=== PATIENT | male | born 1950 | race Caucasian/White ===

== ENCOUNTER → 2020-08-15 | Day surgery (SDC) | payer OTHER ==
[~2020-08-15] VITALS: Ht 173 cm; Wt 108.9 kg
[~2020-08-15] MED LIST: 24HR ALLERGY REL5 MG PO; ASPIRIN325 MG PO; ATARAX25 MG PO; COREG12.5 MG PO; COZAAR100 MG PO; DICLOFENAC SODI75 MG PO; ESOMEPRAZOLE MA20 MG PO; FLONASE ALLER15.8 ML; LASIX40 MG PO; NORVASC5 MG PO; PERCOCET 5-3251 EACH PO; POTASSIUM OTC PO; PRAVASTATIN SOD40 MG PO; SINGULAIR10 MG PO
[2020-08-15 07:50] LABS: HGB 16.6 g/dl (13.2-18.0); MCH 30.6 pg (25.0-31.0); MCHC 33.9 g/dL (32.0-36.0); MCV 90.2 fL (78.0-100.0); MPV 9.1 fL (6.0-9.5); RBC 5.43 M/uL (4.70-6.00); RDW 13.5 % (11.5-14.0); WBC 6.5 K/uL (4.0-10.5)
[2020-08-15 08:09] LABS: ALBUMIN 3.7 g/dL (3.4-5.0); BILIRUBIN - TOTAL 0.4 mg/dL (0.2-1.0); BUN/CREAT RATIO (CALC) 11.6 RATIO; CREATININE 0.69 mg/dL (0.67-1.17); GLOBULIN (CALCULATION) 3.7 g/dL; TOTAL PROTEIN 7.4 g/dL (6.4-8.2)
== END | disposition home or self-care (01) ==
LOC: FAS 07:09
PROVIDERS: Orthopaedic Surgery
DX: S46.212A Strain of muscle, fascia and tendon of other parts of biceps, left arm, initial encounter (principal); M75.122 Complete rotator cuff tear or rupture of left shoulder, not specified as traumatic; M19.012 Primary osteoarthritis, left shoulder; M75.52 Bursitis of left shoulder; M25.812 Other specified joint disorders, left shoulder; K21.9 Gastro-esophageal reflux disease without esophagitis; I10 Essential (primary) hypertension; F17.210 Nicotine dependence, cigarettes, uncomplicated; G47.30 Sleep apnea, unspecified; X58.XXXA Exposure to other specified factors, initial encounter; Z20.822 Contact with and (suspected) exposure to COVID-19; Z98.890 Other specified postprocedural states; Z96.652 Presence of left artificial knee joint; Z88.6 Allergy status to analgesic agent; Z88.5 Allergy status to narcotic agent; Z79.899 Other long term (current) drug therapy
CPT/HCPCS: 36415; 71045; 80053; 93005; C1713; J0171; J0690; J1100; J2250; J2405; J2704; J2710; J2795; J3010; J7120

== ENCOUNTER 2020-08-16 02:32 | Emergency (ER) | payer OTHER | END 2020-08-16 04:42 | disposition home or self-care (01) | LOC: FER 02:32 | DX: L76.22 Postprocedural hemorrhage of skin and subcutaneous tissue following other procedure (principal); F17.210 Nicotine dependence, cigarettes, uncomplicated; I10 Essential (primary) hypertension; Z88.8 Allergy status to other drugs, medicaments and biological substances; Z98.890 Other specified postprocedural states | CPT/HCPCS: 99282 ==

== ENCOUNTER 2021-04-22 13:23 | Emergency (ER) | payer OTHER ==
[~2021-04-22 13:23] MED LIST changes: +ATROVENT HFA12.9 GM INH; +FEOSOL325 MG PO; +LEVAQUIN500 MG PO; +OXYGEN; +PREDNISONE 20MG20 MG PO
[2021-04-22] MEDS ORDERED: CYCLOBENZAPRINE10 MG PO (15:00)
== END 2021-04-22 15:34 | disposition home or self-care (01) ==
LOC: FER 13:23
DX: M54.2 Cervicalgia (principal); M25.512 Pain in left shoulder; I10 Essential (primary) hypertension; J44.9 Chronic obstructive pulmonary disease, unspecified; I48.91 Unspecified atrial fibrillation; F17.210 Nicotine dependence, cigarettes, uncomplicated; V49.50XA Passenger injured in collision with unspecified motor vehicles in traffic accident, initial encounter
CPT/HCPCS: 72125; 73030